=== PATIENT | female | born 1975 | race Caucasian/White ===

== ENCOUNTER 2025-03-05 04:31 | Inpatient (IN) | payer SELFPAY ==
[2025-03-05] MEDS ORDERED: Nitroglycerin 50 MG/250 ML BOT 250 ML ONE (05:44)
[2025-03-05] MEDS ORDERED: Nitroglycerin 50 MG/250 ML BOT 250 ML IVPB SCH (06:00)
[2025-03-05] MEDS ORDERED: Heparin 10,000 UNITS/ 10 ML VIAL SLOW IVP SCH (06:00)
[2025-03-05 06:41] LABS: #Basophils 0.05 10x3/uL (0.0-0.2); #Eosinophils 0.17 10x3/uL (0.0-0.7); #Monocytes 0.53 10x3/uL (0.11-0.59); #Neutrophils 4.11 10x3/uL (1.40-6.50); %Basophils 0.7 % (0.0-1.0); %Eosinophils 2.4 % (0.0-10.0); %Lymphocytes 32.2 % (21.0-51.0); %Monocytes 7.4 % (0.0-10.0); %Neutrophils 57.2 % (42.0-75.0); Hematocrit 35.8 % (36.0-47.0); Hemoglobin 11.7 g/dL (12.0-16.0); Mean Corpuscular Hemoglobin 29.2 pg (27.0-31.0); Mean Corpuscular Volume 89.3 fL (78.0-98.0); Platelet Count 229 10x3/uL (130-400); Red Blood Cell (RBC) Count 4.01 mill/uL (4.20-5.40); White Blood Cell (WBC) Count 7.18 10x3/uL (4.8-10.8)
[2025-03-05 06:51] LABS: Anion Gap 10 mmol/L (10-20); BUN (Urea Nitrogen) 8 mg/dL (9.8-20.1); Calc. Creatinine Clearance 0 mL/min (70-130); Calcium 9.3 mg/dL (7.8-10.44); Carbon Dioxide 25 mmol/L (22-29); Cardiac Risk 3.1 (Less than 4.5); Chloride 109 mmol/L (98-107); Cholesterol 159 mg/dl (< 200 Desired); Glucose 112 mg/dL (70-105); HDL Cholesterol 52 mg/dL (>60 Neg Risk); LDL Cholesterol, Calculated 95 mg/dL; Magnesium 1.9 mg/dL (1.6-2.6); Potassium 3.9 mmol/L (3.5-5.1); Sodium 140 mmol/L (136-145); Triglycerides 62 mg/dL (Less than 150)
[2025-03-05] MEDS ORDERED: Heparin 10,000 UNITS/ 10 ML VIAL ONE (07:57)
[2025-03-05] MEDS ORDERED: Lidocaine 1% (PF) 30 ML VIAL ONE (07:58)
[2025-03-05] MEDS ORDERED: Communication Order-Pharmacy FS SCH ×2 (08:00→15:45)
[2025-03-05] MEDS ORDERED: Iopamidol 370 76% 100 ML VIAL ONE (09:05)
[2025-03-05] MEDS: Aspirin 81 mg Enteric Coated Tablet PO SCH (10:51)
[2025-03-05 11:28] LABS: Acetaminophen Less than 10 mcg/mL (Less than 10); Salicylate Less than 8.0 mg/dL (Less than 8.0)
[2025-03-05] MEDS: Ondansetron PF 4 MG/2 ML Vial IVP PRN (16:35)
[2025-03-05] MEDS: Acetaminophen 325 MG TAB PO PRN (19:12)
[2025-03-05] MEDS: Enoxaparin 100 MG (1 mL) SYRINGE SC SCH (20:02)
[2025-03-06 05:22] VITALS: BMI 38.1
[2025-03-06 05:38] LABS: #Basophils 0.03 10x3/uL (0.0-0.2); #Eosinophils 0.11 10x3/uL (0.0-0.7); #Monocytes 0.77 10x3/uL (0.11-0.59); #Neutrophils 4.94 10x3/uL (1.40-6.50); %Basophils 0.4 % (0.0-1.0); %Eosinophils 1.4 % (0.0-10.0); %Lymphocytes 24.3 % (21.0-51.0); %Monocytes 9.9 % (0.0-10.0); %Neutrophils 63.7 % (42.0-75.0); Hematocrit 36.8 % (36.0-47.0); Hemoglobin 11.8 g/dL (12.0-16.0); Mean Corpuscular Hemoglobin 29.3 pg (27.0-31.0); Mean Corpuscular Volume 91.3 fL (78.0-98.0); Platelet Count 213 10x3/uL (130-400); Red Blood Cell (RBC) Count 4.03 mill/uL (4.20-5.40); White Blood Cell (WBC) Count 7.75 10x3/uL (4.8-10.8)
[2025-03-06 05:54] LABS: Anion Gap 10 mmol/L (10-20); BUN (Urea Nitrogen) 8 mg/dL (9.8-20.1); Calc. Creatinine Clearance 149 mL/min (70-130); Calcium 9.2 mg/dL (7.8-10.44); Carbon Dioxide 26 mmol/L (22-29); Chloride 108 mmol/L (98-107); Glucose 101 mg/dL (70-105); Magnesium 1.9 mg/dL (1.6-2.6); Potassium 3.7 mmol/L (3.5-5.1); Sodium 140 mmol/L (136-145)
[2025-03-06] MEDS: Mupirocin 1 GM TUBE NASAL DECOLONIZATION NASAL SCH (08:33)
[2025-03-06] MEDS: Lisinopril 10 MG TAB PO SCH (08:40)
[2025-03-06] MEDS: Metoprolol Succinate XL 100 MG ER.TAB PO SCH (08:41)
[2025-03-06 17:12] VITALS: BMI 38.1
[2025-03-07 05:24] LABS: #Basophils 0.04 10x3/uL (0.0-0.2); #Eosinophils 0.14 10x3/uL (0.0-0.7); #Monocytes 0.65 10x3/uL (0.11-0.59); #Neutrophils 3.42 10x3/uL (1.40-6.50); %Basophils 0.7 % (0.0-1.0); %Eosinophils 2.3 % (0.0-10.0); %Lymphocytes 30.4 % (21.0-51.0); %Monocytes 10.6 % (0.0-10.0); %Neutrophils 55.8 % (42.0-75.0); Hematocrit 33.5 % (36.0-47.0); Hemoglobin 10.8 g/dL (12.0-16.0); Mean Corpuscular Hemoglobin 29.5 pg (27.0-31.0); Mean Corpuscular Volume 91.5 fL (78.0-98.0); Platelet Count 199 10x3/uL (130-400); Red Blood Cell (RBC) Count 3.66 mill/uL (4.20-5.40); White Blood Cell (WBC) Count 6.12 10x3/uL (4.8-10.8)
[2025-03-07 05:40] LABS: Anion Gap 10 mmol/L (10-20); BUN (Urea Nitrogen) 10 mg/dL (9.8-20.1); Calc. Creatinine Clearance 136 mL/min (70-130); Calcium 9.0 mg/dL (7.8-10.44); Carbon Dioxide 26 mmol/L (22-29); Chloride 109 mmol/L (98-107); Glucose 96 mg/dL (70-105); Magnesium 1.9 mg/dL (1.6-2.6); Potassium 3.9 mmol/L (3.5-5.1); Sodium 141 mmol/L (136-145)
[2025-03-07] MEDS: Lisinopril 20 MG TAB PO SCH (09:51)
[2025-03-08 08:21] VITALS: BP 123/82; TEMP 97.9
== END 2025-03-08 12:18 | disposition home or self-care (01) | DRG 280 ==
LOC: ERS 04:31 → ERHOLD 05:44 → CCU 09:55 → OBS 03-06 22:03
PROVIDERS: ADMIT Internal Medicine; ATTEND Internal Medicine
PROC: 4A023N7 Measurement of Cardiac Sampling and Pressure, Left Heart, Percutaneous Approach (ICD-10-PCS; principal; 2025-03-05)
PROC: B2161ZZ Fluoroscopy of Right and Left Heart using Low Osmolar Contrast (ICD-10-PCS; 2025-03-05)
PROC: B2111ZZ Fluoroscopy of Multiple Coronary Arteries using Low Osmolar Contrast (ICD-10-PCS; 2025-03-05)
DX: I21.4 Non-ST elevation (NSTEMI) myocardial infarction (principal); I50.41 Acute combined systolic (congestive) and diastolic (congestive) heart failure; T82.855A Stenosis of coronary artery stent, initial encounter; I25.10 Atherosclerotic heart disease of native coronary artery without angina pectoris; J44.9 Chronic obstructive pulmonary disease, unspecified; Z79.899 Other long term (current) drug therapy; Z95.5 Presence of coronary angioplasty implant and graft; I11.0 Hypertensive heart disease with heart failure; F17.210 Nicotine dependence, cigarettes, uncomplicated; Y71.2 Prosthetic and other implants, materials and accessory cardiovascular devices associated with adverse incidents; E66.01 Morbid (severe) obesity due to excess calories; D64.9 Anemia, unspecified; Z79.82 Long term (current) use of aspirin
CPT/HCPCS: 36415; 80048; 80061; 80307; 83036; 83735; 85025; 85347; 93005; 93010; 93306; 93454; 94760; 99152; 99153; C1769; C1894; J1644; J1650; J2003; J2270; J2405; J3010; J7042; Q9967